=== PATIENT | female | born 1940 | race Caucasian/White ===

== ENCOUNTER → 2016-10-08 | Outpatient (CLI) | payer MEDICARE, BC | LOC: MC.RAD 09:40 | DX: Z12.31 Encounter for screening mammogram for malignant neoplasm of breast (principal) ==

== ENCOUNTER 2018-12-21 11:17 | Observation (INO) | payer MEDICARE, BC ==
[~2018-12-21] VITALS: Ht 170.2 cm; Wt 61.9 kg
[2018-12-21 12:15] LABS: BASO % 0.2 % (0.0-2.0); EOS % 0.1 % (0-4.0); GRAN # 5.9 (1.4-6.5); GRAN % 73.3 % (42.2-75.2); HEMATOCRIT 43.7 % (37.0-47.0); HEMOGLOBIN 14.1 g/dl (12.5-16.0); LYMPH # 1.2 (1.2-3.4); LYMPH % 14.3 % (20.0-51.0); MEAN CELL VOLUME 98 fl (80.0-100.0); MEAN CORPUSCULAR HEMOGLOBIN 32 pg (27.0-31.0); MEAN CORPUSCULAR HGB CONC 32 g/dl (33.0-37.0); MEAN PLATELET VOLUME 9.7 fl (7.4-10.4); MONO # 0.9 (0.1-0.6); MONO % 11.7 % (1.7-9.3); PLATELET COUNT 175 K/mm3 (130-400); RED BLOOD COUNT 4.46 M/mm3 (4.10-5.30); REDCELL DISTRIBUTION WIDTH-CV 12.7 % (11.5-14.5)
[2018-12-21 12:26] LABS: CALCIUM 8.6 mg/dL (8.4-10.2); CREATININE, serum 0.9 (0.52-1.25); POTASSIUM 4.4 mmol/L (3.4-5.0); TOTAL PROTEIN 7.5 gm/dL (6.4-8.2)
[2018-12-21 12:50] LABS: COLLECTION METHOD CLEAN CATCH
[2018-12-21] MEDS ORDERED: CALCIUM CARBON650 M2 (13:03)
[2018-12-21] MEDS ORDERED: SYNTHROID0.075 MG/T PO (13:04)
[2018-12-21] MEDS ORDERED: ASPIRIN 81M81 MG/TA2 PO (13:04)
[2018-12-21 13:34] LABS: MUCOUS Present /lpf; PH 5 (5-8); SQUAMOUS EPITHELIAL 0-2 /hpf; URINE APPEARANCE Clear; URINE BACTERIA None Seen /hpf; URINE BILIRUBIN Negative (NEGATIVE); URINE BLOOD 1+ (NEGATIVE); URINE COLOR Amber; URINE GLUCOSE Negative (NEGATIVE); URINE KETONE Trace (NEGATIVE); URINE LEUKOCYTE ESTERASE Negative (NEGATIVE); URINE NITRATE Negative (NEGATIVE); URINE PROTEIN(semi-quant) 1+ (NEGATIVE)
[2018-12-21 16:00] VITALS: BP 110/59; PULSE 67; TEMP 98.1
[2018-12-21 16:52] VITALS: BP 110/59; PULSE 67; TEMP 98.1
--- NOTE | 2018-12-21 18:36 | NUR ---
Pt arrived to 314 at 1500. Pt assessment complete, lung sounds diminished in RUL coarse in all other lobes. Pt transferred to bed, call light within reach. NS running at 75mls/hr. Pt sleeping as nurse left the room.
--- NOTE | 2018-12-21 19:57 | NUR ---
Report received from LAYLA Stark. Patient resting in bed. Assessment complete. Patient denies pain at this time. Pulses strong. Bases bilaterally wheezing on expiration. No edema. Bowels active x4. IV patent, NS running at 75 ml/hr. Denies any further needs at this time. Call light within reach.
[2018-12-21 20:55] VITALS: BP 118/62; PULSE 76; TEMP 99.9
[2018-12-21 23:54] VITALS: BP 116/60; PULSE 76; TEMP 99.8
[2018-12-22 04:06] VITALS: BP 90/66; PULSE 68; TEMP 99.1
--- NOTE | 2018-12-22 05:32 | NUR ---
Patient had uneventful night. Resting in bed. NS running at 75 ml/hr. Denied pain throughout night. No further needs at this time. Call light within reach.
--- NOTE | 2018-12-22 06:55 | NUR ---
Report given to LAYLA Lama
[2018-12-22 07:33] VITALS: BP 107/62; PULSE 63; TEMP 98.5
--- NOTE | 2018-12-22 07:34 | NUR ---
Received report from LAYLA Ramirez.
[2018-12-22 08:25] LABS: BASO % 0.3 % (0.0-2.0); EOS # 0.1 (0.0-0.7); EOS % 0.9 % (0-4.0); GRAN # 4.2 (1.4-6.5); GRAN % 64.4 % (42.2-75.2); HEMATOCRIT 36.7 % (37.0-47.0); LYMPH # 1.4 (1.2-3.4); MEAN CELL VOLUME 97 fl (80.0-100.0); MEAN CORPUSCULAR HEMOGLOBIN 32 pg (27.0-31.0); MEAN CORPUSCULAR HGB CONC 33 g/dl (33.0-37.0); MEAN PLATELET VOLUME 9.7 fl (7.4-10.4); MONO # 0.8 (0.1-0.6); MONO % 12.1 % (1.7-9.3); PLATELET COUNT 162 K/mm3 (130-400); RED BLOOD COUNT 3.79 M/mm3 (4.10-5.30); REDCELL DISTRIBUTION WIDTH-CV 12.5 % (11.5-14.5)
[2018-12-22 08:33] LABS: CALCIUM 7.8 mg/dL (8.4-10.2); CREATININE, serum 0.64 (0.52-1.25); POTASSIUM 3.9 mmol/L (3.4-5.0)
--- NOTE | 2018-12-22 09:39 | NUR ---
Pt napping upon entry, easily awakened, no C/O pain at this time, shift assessments complete, left Pt call light in reach, bed in lowest position.
[2018-12-22] MEDS ORDERED: LEVAQUIN 750MG750 M1 PO (10:18)
[2018-12-22] MEDS ORDERED: MUCINEX1200 MG PO (10:19)
--- NOTE | 2018-12-22 11:05 | NUR ---
SW met with the patient to discuss discharge plan. The patient lives in [place] with her (Chago), daughter (Rajwinder ph#[phone]), son-in-law, and her three grandchildren. She reports independence with ADLs and does not have any DME. The patient's PCP is Dr. Florentin Roberts and she receives her medications at the [facility]. She reports no difficulties obtaining her meds. The patient does not have advanced directives in EMR, but she states that she does have them completed and at home. She states that her DPOA-HC was her , but that he has dementia. She states that the alternate is her daughter, Rajwinder. The patient plans to return back home with her family upon discharge. No additional needs at this time.
[2018-12-22 11:14] VITALS: BP 92/61; PULSE 74; TEMP 97.6
--- NOTE | 2018-12-22 13:30 | NUR ---
Pt discharged to home, Pt escorted to entrance, left with friend via private auto.
== END 2018-12-22 13:30 | disposition home or self-care (01) ==
LOC: COL.ER 11:17 → MEDICAL 12:57
PROVIDERS: Nurse Practitioner; Nurse Practitioner Family; ADMIT Internal Medicine
DX: J18.1 Lobar pneumonia, unspecified organism (principal); E03.9 Hypothyroidism, unspecified; R19.7 Diarrhea, unspecified; R11.2 Nausea with vomiting, unspecified; Z90.710 Acquired absence of both cervix and uterus; Z85.038 Personal history of other malignant neoplasm of large intestine; Z90.49 Acquired absence of other specified parts of digestive tract; Z88.0 Allergy status to penicillin; Z88.2 Allergy status to sulfonamides; Z79.01 Long term (current) use of anticoagulants; Z79.899 Other long term (current) drug therapy; Z79.82 Long term (current) use of aspirin; Z83.3 Family history of diabetes mellitus
CPT/HCPCS: G0378; J1956; J7030